=== PATIENT | female | born 1950 | race Two or more races ===

== ENCOUNTER 2018-04-08 01:32 | Emergency (ER) | payer OTHER ==
[~2018-04-08] VITALS: Ht 152.4 cm; Wt 68.5 kg
[~2018-04-08 01:32] MED LIST: GLIP-116; INSUPOW; METF-370; SITA100T7; TELM20TA
[2018-04-08 02:01] VITALS: BP 187/78
[2018-04-08] MEDS ORDERED: cloNIDine HCL 0.1 MG TAB PO ONE (02:15)
== END 2018-04-08 03:49 | disposition left against medical advice (07) ==
LOC: ER 01:46
DX: R51 Headache (principal); Z53.21 Procedure and treatment not carried out due to patient leaving prior to being seen by health care provider
CPT/HCPCS: 70450; 82962; 93005

== ENCOUNTER 2021-04-19 23:29 | Inpatient (IN) | payer OTHER ==
[~2021-04-19] VITALS: Ht 157.5 cm; Wt 65.1 kg
[~2021-04-19 23:29] MED LIST changes: -GLIP-116; +GLIP10TA9 PO; -SITA100T7; +SITA100T7 PO
[2021-04-20] MEDS ORDERED: MORPHINE SULFATE 4 MG/ML SYR/VIAL IV ONE ×2 (00:45→01:15)
[2021-04-20 01:36] LABS: Albumin 3.5 g/dL (3.4-5.0); BUN/Creatinine Ratio 34.7; Calcium 8.4 mg/dL (8.5-10.1); Potassium 4.6 mmol/L (3.5-5.1)
[2021-04-20 01:37] LABS: Basophils # (auto) 0 10 ^3/uL (0-0.2); Basophils % (auto) 0.1 % (0.0-2.0); Eosinophils # (auto) 0 10 ^3/uL (0-0.8); Eosinophils % (auto) 0.1 % (0.0-7.0); Hematocrit 37.9 % (36.0-46.0); Hemoglobin 12.4 g/dL (12.2-16.2); Lymphocytes % (auto) 12.1 % (10.0-50.0); Mean Corpuscular Hemoglobin 29.3 pg (28.0-32.0); Mean Corpuscular Hgb Conc. 32.6 g/dL (32.0-36.0); Mean Corpuscular Volume 89.7 fL (80.0-100.0); Monocytes # (auto) 1.2 10 ^3/uL (0-1.3); Monocytes % (auto) 7.3 % (0.0-12.0); Neutrophils # (auto) 13.4 10 ^3/uL (1.6-8.6); Neutrophils % (auto) 80.4 % (37.0-80.0); Red Blood Cells 4.22 10^6/uL (4.0-5.20); Red Cell Distribution Width 14.7 % (11.8-14.3); White Blood Cell 16.7 10^3/uL (4.4-10.8)
[2021-04-20 01:39] LABS: Bilirubin, Total 0.3 mg/dL (0.2-1.0); Total Protein 6.7 g/dL (6.4-8.2)
[2021-04-20 01:45] LABS: INR 0.99 (0.9-1.15)
[2021-04-20] MEDS: SODIUM CHLORIDE 0.9% 1,000 ML IV SCH ×3 (02:57→07:06)
[2021-04-20] MEDS ORDERED: DEXTROSE (50%) 50ML SYRG IV PRN (03:00)
[2021-04-20] MEDS ORDERED: ONDANSETRON HCL 4 MG/2 ML VIAL IV PRN (03:00)
[2021-04-20] MEDS ORDERED: ACETAMINOPHEN 325 MG TAB PO PRN (03:00)
[2021-04-20] MEDS: MORPHINE SULFATE 4 MG/ML SYR/VIAL IV PRN ×3 (05:19→14:55)
[2021-04-20] MEDS: HYDROcodone-ACET 5/325MG TAB PO PRN ×2 (05:28→22:09)
[2021-04-20] MEDS: InsuLIN REG 1unit/0.01ml Soln (100units/ml) SC SCH ×4 (06:00→23:51)
[2021-04-20] MEDS: ACCU-CHEK COMFORT CURVE STRIP VI SCH ×4 (07:12→23:51)
[2021-04-20 09:09] LABS: Urine Bacteria FEW /hpf (None Seen); Urine Blood 1+ /uL (Negative); Urine WBC 3 /hpf (0 - 5)
[2021-04-20 09:45] VITALS: BP 130/58
[2021-04-20] MEDS: PANTOPRAZOLE 40 MG/10 ML VIAL INJ IV SCH (10:16)
[2021-04-20 13:00] VITALS: BP 130/58
[2021-04-20] MEDS ORDERED: METF-372 PO (14:54)
[2021-04-20] MEDS ORDERED: AMLO-496 PO (14:54)
[2021-04-20] MEDS ORDERED: TRAZ50TA2 PO (14:54)
[2021-04-20] MEDS ORDERED: GLUC1TES36 XX (14:55)
[2021-04-20] MEDS ORDERED: MET50T PO (14:55)
[2021-04-20] MEDS ORDERED: CITA-73 PO (14:55)
[2021-04-20] MEDS ORDERED: INSU1INJ5 SC (14:55)
[2021-04-20] MEDS ORDERED: OMEP20TA PO (14:57)
[2021-04-20] MEDS ORDERED: amLODIPine BESYLATE 5 MG TAB PO ONE (16:45)
[2021-04-20 17:00] VITALS: BP 154/58
[2021-04-20] MEDS: CALCIUM W/VIT D (600MG/400IU) TAB PO SCH (18:00)
[2021-04-20 22:00] VITALS: BP 151/60
[2021-04-21 05:00] VITALS: BP 166/62
[2021-04-21] MEDS: MORPHINE SULFATE 4 MG/ML SYR/VIAL IV PRN (05:37)
[2021-04-21] MEDS: SODIUM CHLORIDE 0.9% 1,000 ML IV SCH (05:52)
[2021-04-21 06:05] LABS: Basophils # (auto) 0 10 ^3/uL (0-0.2); Basophils % (auto) 0.4 % (0.0-2.0); Eosinophils # (auto) 0.2 10 ^3/uL (0-0.8); Eosinophils % (auto) 2.1 % (0.0-7.0); Hematocrit 36.4 % (36.0-46.0); Hemoglobin 12.2 g/dL (12.2-16.2); Lymphocytes # (auto) 2.5 10 ^3/uL (0.4-5.4); Lymphocytes % (auto) 23.4 % (10.0-50.0); Mean Corpuscular Hemoglobin 29.8 pg (28.0-32.0); Mean Corpuscular Hgb Conc. 33.4 g/dL (32.0-36.0); Monocytes # (auto) 1.1 10 ^3/uL (0-1.3); Monocytes % (auto) 10.8 % (0.0-12.0); Neutrophils # (auto) 6.7 10 ^3/uL (1.6-8.6); Neutrophils % (auto) 63.3 % (37.0-80.0); Red Blood Cells 4.09 10^6/uL (4.0-5.20); Red Cell Distribution Width 14.7 % (11.8-14.3); White Blood Cell 10.6 10^3/uL (4.4-10.8)
[2021-04-21] MEDS: InsuLIN REG 1unit/0.01ml Soln (100units/ml) SC SCH ×4 (06:05→23:55)
[2021-04-21] MEDS: ACCU-CHEK COMFORT CURVE STRIP VI SCH ×4 (06:08→23:48)
[2021-04-21 06:31] LABS: Albumin 3.2 g/dL (3.4-5.0); BUN/Creatinine Ratio 19.3; Calcium 8.8 mg/dL (8.5-10.1)
[2021-04-21 06:44] LABS: Bilirubin, Total 0.6 mg/dL (0.2-1.0); Total Protein 6.9 g/dL (6.4-8.2)
[2021-04-21 07:45] VITALS: BP 146/96
[2021-04-21] MEDS ORDERED: ceFAZolin 1GM/50ML 100 ML IV ONE (08:09)
[2021-04-21] MEDS ORDERED: fentaNYL CITRATE 100 MCG/2 ML VL ONE (08:17)
[2021-04-21] MEDS ORDERED: MIDAZOLAM HCL 2MG/2ML 2ml VIAL (1mg/ml) ONE ×2 (08:17)
[2021-04-21] MEDS ORDERED: TETRACAINE 1% INJ 2 ML VIAL IJ ONE (08:17)
[2021-04-21] MEDS ORDERED: DexAMETHasone SOD PHOS 10MG/1ML VIAL INJ ONE (08:50)
[2021-04-21] MEDS ORDERED: PROPOFOL 10 MG/ML 20 ML IV ONE (08:50)
[2021-04-21] MEDS ORDERED: ePHEDrine SULFATE 50 MG/ML AMP IV PRN (09:15)
[2021-04-21] MEDS ORDERED: ONDANSETRON HCL 4 MG/2 ML VIAL IV PRN (09:15)
[2021-04-21] MEDS ORDERED: LABETALOL HCL 5 MG/ML 4ML SYRINGE IV PRN (09:15)
[2021-04-21] MEDS ORDERED: HYDROmorphone HCL 2 MG/ML VL IV PRN (09:15)
[2021-04-21] MEDS ORDERED: MORPHINE SULFATE 4 MG/ML SYR/VIAL IV PRN (09:15)
[2021-04-21] MEDS ORDERED: MIDAZOLAM HCL 2MG/2ML 2ml VIAL (1mg/ml) IV PRN (09:15)
[2021-04-21] MEDS ORDERED: HYDROcodone-ACET 10/325MG TAB PO PRN (10:15)
[2021-04-21 11:15] VITALS: BP 162/61
[2021-04-21] MEDS ORDERED: MORPHINE SULFATE INJECTION 2 MG/ML SYRG IV PRN (11:30)
[2021-04-21] MEDS: CALCIUM W/VIT D (600MG/400IU) TAB PO SCH ×2 (11:30→18:00)
[2021-04-21] MEDS: LACTATED RINGER'S 1,000 ML IV SCH ×2 (11:30→20:15)
[2021-04-21] MEDS: amLODIPine BESYLATE 5 MG TAB PO SCH (12:00)
[2021-04-21] MEDS: CITALOPRAM HYDROBR 20 MG TAB PO SCH (12:00)
[2021-04-21] MEDS: PANTOPRAZOLE 40 MG/10 ML VIAL INJ IV SCH (12:00)
[2021-04-21 13:00] VITALS: BP 143/54
[2021-04-21] MEDS: MORPHINE SULFATE INJECTION 2 MG/ML SYRG IV PRN ×2 (13:18→21:35)
[2021-04-21] MEDS ORDERED: ceFAZolin 2 GM in D5W 5% 100 ML IV SCH (14:00)
[2021-04-21] MEDS: SODIUM CHLOR 0.9% PF (SALINE LOCK) 10ML VIAL/SYR IV SCH ×2 (14:00→21:35)
[2021-04-21] MEDS: ceFAZolin 2 GM in D5W 5% 100 ML IV SCH ×2 (16:30→23:47)
[2021-04-21 16:52] VITALS: BP 143/67
[2021-04-21] MEDS: metFORMIN HYDROCHLORIDE 500 MG TAB PO SCH (17:30)
[2021-04-21] MEDS: INSULIN LANTUS (GLARGINE) 1 /0.01ml (100units/ml) SC SCH (21:35)
[2021-04-21 22:00] VITALS: BP 139/49
[2021-04-22 05:00] VITALS: BP 137/54
[2021-04-22] MEDS: SODIUM CHLOR 0.9% PF (SALINE LOCK) 10ML VIAL/SYR IV SCH ×3 (06:02→21:52)
[2021-04-22] MEDS: ACCU-CHEK COMFORT CURVE STRIP VI SCH ×3 (06:03→17:20)
[2021-04-22] MEDS: LACTATED RINGER'S 1,000 ML IV SCH (06:03)
[2021-04-22] MEDS: InsuLIN REG 1unit/0.01ml Soln (100units/ml) SC SCH ×3 (06:29→17:33)
[2021-04-22] MEDS: MORPHINE SULFATE INJECTION 2 MG/ML SYRG IV PRN ×2 (06:31→10:07)
[2021-04-22 06:42] LABS: Basophils # (auto) 0 10 ^3/uL (0-0.2); Basophils % (auto) 0.2 % (0.0-2.0); Eosinophils # (auto) 0 10 ^3/uL (0-0.8); Eosinophils % (auto) 0.1 % (0.0-7.0); Hematocrit 29.1 % (36.0-46.0); Hemoglobin 9.7 g/dL (12.2-16.2); Lymphocytes # (auto) 1.7 10 ^3/uL (0.4-5.4); Lymphocytes % (auto) 13.6 % (10.0-50.0); Mean Corpuscular Hemoglobin 29.8 pg (28.0-32.0); Mean Corpuscular Hgb Conc. 33.5 g/dL (32.0-36.0); Mean Corpuscular Volume 88.9 fL (80.0-100.0); Monocytes # (auto) 1.2 10 ^3/uL (0-1.3); Monocytes % (auto) 9.8 % (0.0-12.0); Neutrophils # (auto) 9.4 10 ^3/uL (1.6-8.6); Neutrophils % (auto) 76.3 % (37.0-80.0); Red Blood Cells 3.27 10^6/uL (4.0-5.20); Red Cell Distribution Width 14.6 % (11.8-14.3); White Blood Cell 12.3 10^3/uL (4.4-10.8)
[2021-04-22 07:07] LABS: Potassium 4.1 mmol/L (3.5-5.1)
[2021-04-22 07:12] LABS: Calcium 8.9 mg/dL (8.5-10.1)
[2021-04-22] MEDS: CALCIUM W/VIT D (600MG/400IU) TAB PO SCH ×2 (08:00→17:21)
[2021-04-22] MEDS: metFORMIN HYDROCHLORIDE 500 MG TAB PO SCH ×2 (08:00→17:20)
[2021-04-22 09:00] VITALS: BP 144/69
[2021-04-22] MEDS: CITALOPRAM HYDROBR 20 MG TAB PO SCH (10:00)
[2021-04-22] MEDS: ENOXAPARIN SOD 40 MG/0.4 ML SYRINGE SC SCH (10:00)
[2021-04-22] MEDS: PANTOPRAZOLE 40 MG/10 ML VIAL INJ IV SCH (10:00)
[2021-04-22] MEDS: amLODIPine BESYLATE 5 MG TAB PO SCH (10:00)
[2021-04-22 13:00] VITALS: BP 152/63
[2021-04-22 17:00] VITALS: BP 130/60
[2021-04-22] MEDS: INSULIN LANTUS (GLARGINE) 1 /0.01ml (100units/ml) SC SCH (21:53)
[2021-04-22 22:00] VITALS: BP 139/54
[2021-04-23] MEDS: MORPHINE SULFATE INJECTION 2 MG/ML SYRG IV PRN (02:52)
[2021-04-23 04:45] VITALS: BP 128/59
[2021-04-23] MEDS: SODIUM CHLOR 0.9% PF (SALINE LOCK) 10ML VIAL/SYR IV SCH ×2 (05:11→12:37)
[2021-04-23] MEDS: ACCU-CHEK COMFORT CURVE STRIP VI SCH ×4 (06:20→18:00)
[2021-04-23] MEDS: InsuLIN REG 1unit/0.01ml Soln (100units/ml) SC SCH ×4 (06:28→18:00)
[2021-04-23] MEDS: metFORMIN HYDROCHLORIDE 500 MG TAB PO SCH ×2 (08:00→18:00)
[2021-04-23] MEDS: CALCIUM W/VIT D (600MG/400IU) TAB PO SCH ×2 (08:00→18:00)
[2021-04-23 09:00] VITALS: BP 123/75
[2021-04-23] MEDS: amLODIPine BESYLATE 5 MG TAB PO SCH (09:45)
[2021-04-23] MEDS: CITALOPRAM HYDROBR 20 MG TAB PO SCH (09:45)
[2021-04-23] MEDS: ENOXAPARIN SOD 40 MG/0.4 ML SYRINGE SC SCH (09:45)
[2021-04-23 13:00] VITALS: BP 130/65
[2021-04-23 17:00] VITALS: BP 126/66
[2021-04-23] MEDS: glipiZIDE 5 MG TAB PO SCH (18:00)
[2021-04-23] MEDS: HYDROcodone-ACET 5/325MG TAB PO PRN (20:20)
[2021-04-23 22:00] VITALS: BP 122/56
[2021-04-23] MEDS: HYDROcodone-ACET 10/325MG TAB PO PRN (22:24)
[2021-04-24] MEDS: ACCU-CHEK COMFORT CURVE STRIP VI SCH ×4 (00:13→17:58)
[2021-04-24] MEDS: InsuLIN REG 1unit/0.01ml Soln (100units/ml) SC SCH ×4 (00:16→17:58)
[2021-04-24] MEDS: SODIUM CHLOR 0.9% PF (SALINE LOCK) 10ML VIAL/SYR IV SCH ×4 (00:21→22:00)
[2021-04-24 05:00] VITALS: BP 128/64
[2021-04-24] MEDS: glipiZIDE 5 MG TAB PO SCH ×2 (06:49→17:57)
[2021-04-24 07:17] LABS: Basophils # (auto) 0 10 ^3/uL (0-0.2); Basophils % (auto) 0.4 % (0.0-2.0); Eosinophils # (auto) 0.3 10 ^3/uL (0-0.8); Eosinophils % (auto) 3.4 % (0.0-7.0); Hematocrit 27.2 % (36.0-46.0); Hemoglobin 9.4 g/dL (12.2-16.2); Lymphocytes # (auto) 2.3 10 ^3/uL (0.4-5.4); Lymphocytes % (auto) 30.2 % (10.0-50.0); Mean Corpuscular Hemoglobin 30.3 pg (28.0-32.0); Mean Corpuscular Hgb Conc. 34.4 g/dL (32.0-36.0); Mean Corpuscular Volume 88.1 fL (80.0-100.0); Monocytes # (auto) 0.9 10 ^3/uL (0-1.3); Monocytes % (auto) 11.5 % (0.0-12.0); Neutrophils # (auto) 4.2 10 ^3/uL (1.6-8.6); Neutrophils % (auto) 54.5 % (37.0-80.0); Nucleated Red Blood Cells % 0.1 %; Red Blood Cells 3.09 10^6/uL (4.0-5.20); Red Cell Distribution Width 14.1 % (11.8-14.3); White Blood Cell 7.8 10^3/uL (4.4-10.8)
[2021-04-24] MEDS: CALCIUM W/VIT D (600MG/400IU) TAB PO SCH ×2 (08:00→17:58)
[2021-04-24] MEDS: metFORMIN HYDROCHLORIDE 500 MG TAB PO SCH ×2 (08:00→17:57)
[2021-04-24 09:00] VITALS: BP 117/60
[2021-04-24] MEDS: CITALOPRAM HYDROBR 20 MG TAB PO SCH (09:56)
[2021-04-24] MEDS: amLODIPine BESYLATE 5 MG TAB PO SCH (09:57)
[2021-04-24] MEDS: ENOXAPARIN SOD 40 MG/0.4 ML SYRINGE SC SCH (10:00)
[2021-04-24 13:00] VITALS: BP 139/56
[2021-04-24 16:46] VITALS: BP 99/57
[2021-04-24] MEDS: HYDROcodone-ACET 10/325MG TAB PO PRN (17:59)
[2021-04-24] MEDS: HYDROcodone-ACET 5/325MG TAB PO PRN (21:51)
[2021-04-24 22:00] VITALS: BP 128/55
[2021-04-25] MEDS: ACCU-CHEK COMFORT CURVE STRIP VI SCH ×5 (00:23→23:18)
[2021-04-25] MEDS: InsuLIN REG 1unit/0.01ml Soln (100units/ml) SC SCH ×4 (00:24→17:57)
[2021-04-25] MEDS: HYDROcodone-ACET 10/325MG TAB PO PRN ×3 (00:27→23:28)
[2021-04-25 05:00] VITALS: BP 142/67
[2021-04-25] MEDS: SODIUM CHLOR 0.9% PF (SALINE LOCK) 10ML VIAL/SYR IV SCH ×3 (06:31→22:00)
[2021-04-25] MEDS: glipiZIDE 5 MG TAB PO SCH ×2 (06:32→17:55)
[2021-04-25] MEDS: CALCIUM W/VIT D (600MG/400IU) TAB PO SCH ×2 (08:00→17:56)
[2021-04-25] MEDS: metFORMIN HYDROCHLORIDE 500 MG TAB PO SCH ×2 (08:00→17:55)
[2021-04-25 09:00] VITALS: BP 136/61
[2021-04-25] MEDS: HYDROcodone-ACET 5/325MG TAB PO PRN (09:35)
[2021-04-25] MEDS: ENOXAPARIN SOD 40 MG/0.4 ML SYRINGE SC SCH (10:00)
[2021-04-25] MEDS: amLODIPine BESYLATE 5 MG TAB PO SCH (10:00)
[2021-04-25] MEDS: CITALOPRAM HYDROBR 20 MG TAB PO SCH (10:00)
[2021-04-25 13:00] VITALS: BP 128/54
[2021-04-25 17:00] VITALS: BP 124/52
[2021-04-25 21:40] VITALS: BP 115/50
[2021-04-26] MEDS: InsuLIN REG 1unit/0.01ml Soln (100units/ml) SC SCH ×5 (00:01→23:25)
[2021-04-26 05:16] VITALS: BP 133/66
[2021-04-26] MEDS: SODIUM CHLOR 0.9% PF (SALINE LOCK) 10ML VIAL/SYR IV SCH ×3 (06:00→22:00)
[2021-04-26 06:35] LABS: Hematocrit 27.4 % (36.0-46.0)
[2021-04-26] MEDS: ACCU-CHEK COMFORT CURVE STRIP VI SCH ×4 (06:37→23:22)
[2021-04-26 06:49] LABS: Anion Gap 6 (5-15); Blood Urea Nitrogen 10 mg/dL (7-18); Calcium 8.4 mg/dL (8.5-10.1); Carbon Dioxide 26 mmol/L (21-32); Chloride 102 mmol/L (98-107); GFR African American 202 mL/min; GFR Non-African American 167 mL/min; Glucose 125 mg/dL (74-106); Potassium 3.6 mmol/L (3.5-5.1); Sodium 134 mmol/L (136-145)
[2021-04-26] MEDS: glipiZIDE 5 MG TAB PO SCH (07:17)
[2021-04-26 09:00] VITALS: BP 135/59
[2021-04-26] MEDS: CALCIUM W/VIT D (600MG/400IU) TAB PO SCH ×2 (09:10→17:37)
[2021-04-26] MEDS: metFORMIN HYDROCHLORIDE 500 MG TAB PO SCH ×2 (09:10→17:37)
[2021-04-26] MEDS: amLODIPine BESYLATE 5 MG TAB PO SCH (09:11)
[2021-04-26] MEDS: CITALOPRAM HYDROBR 20 MG TAB PO SCH (09:11)
[2021-04-26] MEDS: ENOXAPARIN SOD 40 MG/0.4 ML SYRINGE SC SCH (09:12)
[2021-04-26] MEDS: HYDROcodone-ACET 5/325MG TAB PO PRN (09:12)
[2021-04-26 13:00] VITALS: BP_SYST 124; BP_SYST 137; BP_DIAS 51; BP_DIAS 57
[2021-04-26] MEDS: HYDROcodone-ACET 10/325MG TAB PO PRN ×2 (15:44→22:52)
[2021-04-26 17:00] VITALS: BP 124/57
[2021-04-26 22:00] VITALS: BP 121/59
[2021-04-27 05:00] VITALS: BP 131/61
[2021-04-27] MEDS: SODIUM CHLOR 0.9% PF (SALINE LOCK) 10ML VIAL/SYR IV SCH ×3 (05:01→22:11)
[2021-04-27] MEDS: ACCU-CHEK COMFORT CURVE STRIP VI SCH ×3 (06:00→18:00)
[2021-04-27] MEDS: InsuLIN REG 1unit/0.01ml Soln (100units/ml) SC SCH ×4 (06:21→23:54)
[2021-04-27 09:07] VITALS: BP 134/47
[2021-04-27] MEDS: CALCIUM W/VIT D (600MG/400IU) TAB PO SCH ×2 (09:10→17:39)
[2021-04-27] MEDS: CITALOPRAM HYDROBR 20 MG TAB PO SCH (09:10)
[2021-04-27] MEDS: metFORMIN HYDROCHLORIDE 500 MG TAB PO SCH ×2 (09:10→17:39)
[2021-04-27] MEDS: HYDROcodone-ACET 10/325MG TAB PO PRN (09:10)
[2021-04-27] MEDS: ENOXAPARIN SOD 40 MG/0.4 ML SYRINGE SC SCH (09:11)
[2021-04-27] MEDS: amLODIPine BESYLATE 5 MG TAB PO SCH (09:11)
[2021-04-27] MEDS ORDERED: LACTULOSE 20Gm/30ML SOLN PO PRN (11:15)
[2021-04-27 13:01] VITALS: BP 130/52
[2021-04-27 16:42] VITALS: BP 122/50
[2021-04-27 22:00] VITALS: BP 127/58
[2021-04-27] MEDS: HYDROcodone-ACET 5/325MG TAB PO PRN (22:10)
[2021-04-28] MEDS: HYDROcodone-ACET 10/325MG TAB PO PRN ×2 (03:44→21:16)
[2021-04-28 05:00] VITALS: BP 138/53
[2021-04-28] MEDS: InsuLIN REG 1unit/0.01ml Soln (100units/ml) SC SCH ×3 (06:18→18:05)
[2021-04-28] MEDS: ACCU-CHEK COMFORT CURVE STRIP VI SCH ×4 (06:19→18:05)
[2021-04-28] MEDS: SODIUM CHLOR 0.9% PF (SALINE LOCK) 10ML VIAL/SYR IV SCH ×2 (06:22→14:25)
[2021-04-28 07:24] LABS: Hematocrit 27.6 % (36.0-46.0); Hemoglobin 9.4 g/dL (12.2-16.2)
[2021-04-28 09:05] VITALS: BP 141/59
[2021-04-28] MEDS: metFORMIN HYDROCHLORIDE 500 MG TAB PO SCH ×2 (09:52→18:04)
[2021-04-28] MEDS: CITALOPRAM HYDROBR 20 MG TAB PO SCH (09:53)
[2021-04-28] MEDS: ENOXAPARIN SOD 40 MG/0.4 ML SYRINGE SC SCH (09:53)
[2021-04-28] MEDS: amLODIPine BESYLATE 5 MG TAB PO SCH (09:53)
[2021-04-28] MEDS: CALCIUM W/VIT D (600MG/400IU) TAB PO SCH ×2 (09:53→18:05)
[2021-04-28] MEDS: KETOROLAC TROMETH 30 MG/ML 1ML VIAL IV PRN (10:53)
[2021-04-28 13:00] VITALS: BP 108/67
[2021-04-28 17:10] VITALS: BP 135/54
[2021-04-28 22:00] VITALS: BP 121/55
[2021-04-29] MEDS: InsuLIN REG 1unit/0.01ml Soln (100units/ml) SC SCH ×2 (00:15→06:27)
[2021-04-29] MEDS: ACCU-CHEK COMFORT CURVE STRIP VI SCH ×2 (00:16→06:23)
[2021-04-29] MEDS: SODIUM CHLOR 0.9% PF (SALINE LOCK) 10ML VIAL/SYR IV SCH ×2 (00:19→06:28)
[2021-04-29] MEDS: CALCIUM W/VIT D (600MG/400IU) TAB PO SCH (08:00)
[2021-04-29] MEDS: metFORMIN HYDROCHLORIDE 500 MG TAB PO SCH (08:00)
[2021-04-29 09:00] VITALS: BP 123/52
[2021-04-29] MEDS: KETOROLAC TROMETH 30 MG/ML 1ML VIAL IV PRN (09:10)
[2021-04-29] MEDS: CITALOPRAM HYDROBR 20 MG TAB PO SCH (09:43)
[2021-04-29] MEDS: ENOXAPARIN SOD 40 MG/0.4 ML SYRINGE SC SCH (09:43)
[2021-04-29] MEDS: amLODIPine BESYLATE 5 MG TAB PO SCH (10:00)
[2021-04-29 12:29] VITALS: BP 117/51
[2021-04-29] MEDS ORDERED: TRAM50TA2 PO (13:58)
[2021-04-29] MEDS ORDERED: HYDR-4902 PO ×2 (13:58→14:01)
[2021-04-29] MEDS ORDERED: glipiZIDE 5 MG TAB PO ONE (14:00)
[2021-04-29] MEDS ORDERED: IBUP400T22 PO (14:01)
[2021-04-29] MEDS ORDERED: RIVA10TA PO (14:03)
[2021-04-29] MEDS: HYDROcodone-ACET 10/325MG TAB PO PRN (15:25)
[2021-04-29] MEDS ORDERED: glipiZIDE 5 MG TAB PO SCH (20:00)
== END 2021-04-29 17:30 | disposition home or self-care (01) | DRG 482 ==
LOC: EDUNIT# 23:29 → ER 23:29 → EDBD 23:29 → OVERFLOW 23:30 → WEST WING 04-20 10:09 → TELE-WESTW 04-21 17:21 → WEST WING 04-26 16:00
PROVIDERS: ADMIT Nurse Practitioner; ATTEND Internal Medicine
PROC: 0QS706Z Reposition Left Upper Femur with Intramedullary Internal Fixation Device, Open Approach (ICD-10-PCS; principal; 2021-04-21 08:26)
DX: S72.142A Displaced intertrochanteric fracture of left femur, initial encounter for closed fracture (principal); I10 Essential (primary) hypertension; E11.9 Type 2 diabetes mellitus without complications; S92.001A Unspecified fracture of right calcaneus, initial encounter for closed fracture; F41.9 Anxiety disorder, unspecified; W01.0XXA Fall on same level from slipping, tripping and stumbling without subsequent striking against object, initial encounter; M81.0 Age-related osteoporosis without current pathological fracture; Z20.822 Contact with and (suspected) exposure to COVID-19; Z86.73 Personal history of transient ischemic attack (TIA), and cerebral infarction without residual deficits; Z87.442 Personal history of urinary calculi; Z90.710 Acquired absence of both cervix and uterus; Y93.89 Activity, other specified; Y92.89 Other specified places as the place of occurrence of the external cause; Y99.8 Other external cause status
CPT/HCPCS: 36415; 71045; 73502; 73590; 73610; 76000; 80048; 80053; 81001; 82962; 83036; 84132; 85014; 85018; 85025; 85610; 87081; 87426; 93005; 96361; 96374; 97110; 97116; 97163; 97530; C1713; C1769; C9113; G0378; J0690; J1100; J1815; J1885; J2250; J2704; J7060

== ENCOUNTER 2021-09-25 04:10 | Emergency (ER) | payer OTHER ==
[~2021-09-25 04:10] MED LIST changes: +AMLO-496 PO; +CITA-73 PO; +GLUC1TES36 XX; +HYDR-4902 PO; +IBUP400T22 PO; -INSUPOW; -METF-370; +METF-372 PO; +OMEP20TA PO; +RIVA10TA PO; -SITA100T7 PO; -TELM20TA; +TRAZ50TA2 PO
[2021-09-25 05:43] LABS: Basophils # (auto) 0 10 ^3/uL (0-0.2); Basophils % (auto) 0.2 % (0.0-2.0); Eosinophils # (auto) 0 10 ^3/uL (0-0.8); Eosinophils % (auto) 0.4 % (0.0-7.0); Hematocrit 37.5 % (36.0-46.0); Hemoglobin 12.4 g/dL (12.2-16.2); Lymphocytes # (auto) 1.4 10 ^3/uL (0.4-5.4); Lymphocytes % (auto) 14.5 % (10.0-50.0); Mean Corpuscular Hemoglobin 28.7 pg (28.0-32.0); Mean Corpuscular Hgb Conc. 32.9 g/dL (32.0-36.0); Mean Corpuscular Volume 87.1 fL (80.0-100.0); Monocytes # (auto) 0.4 10 ^3/uL (0-1.3); Monocytes % (auto) 4.6 % (0.0-12.0); Neutrophils # (auto) 7.7 10 ^3/uL (1.6-8.6); Neutrophils % (auto) 80.3 % (37.0-80.0); Red Blood Cells 4.31 10^6/uL (4.0-5.20); Red Cell Distribution Width 14.5 % (11.8-14.3); White Blood Cell 9.6 10^3/uL (4.4-10.8)
[2021-09-25 06:01] LABS: Calcium 9.5 mg/dL (8.5-10.1); Potassium 4.1 mmol/L (3.5-5.1)
[2021-09-25 06:05] LABS: Albumin 4.3 g/dL (3.4-5.0); BUN/Creatinine Ratio 28.4
[2021-09-25 06:08] LABS: Bilirubin, Total 0.6 mg/dL (0.2-1.0); Total Protein 8.2 g/dL (6.4-8.2)
[2021-09-25] MEDS ORDERED: SODIUM CHLORIDE 0.9% 1,000 ML IV ONE (07:00)
[2021-09-25] MEDS ORDERED: ONDANSETRON HCL 4 MG/2 ML VIAL IV ONE (07:00)
[2021-09-25] MEDS ORDERED: MECL25CH38 PO (10:20)
[2021-09-25 10:46] VITALS: BP 153/68
== END 2021-09-25 10:50 | disposition home or self-care (01) ==
LOC: ER 04:10
DX: R42 Dizziness and giddiness (principal); E11.9 Type 2 diabetes mellitus without complications; I10 Essential (primary) hypertension; Z90.710 Acquired absence of both cervix and uterus; Z87.442 Personal history of urinary calculi; Z86.73 Personal history of transient ischemic attack (TIA), and cerebral infarction without residual deficits
CPT/HCPCS: 36415; 74176; 80053; 85025; 93005; 96361; 96374; 99284; J2405; J7030

== ENCOUNTER 2023-07-13 17:11 | Inpatient (IN) | payer OTHER ==
[~2023-07-13] VITALS: Ht 160 cm; Wt 70.2 kg
[~2023-07-13 17:11] MED LIST changes: -AMLO-496 PO; +AMLO1TAB23 PO; +IBUP-1453 PO; -IBUP400T22 PO; +MECL25CH38 PO; +TRAZ-227 PO; -TRAZ50TA2 PO
[2023-07-13 18:58] LABS: Basophils # (auto) 0 10 ^3/uL (0-0.2); Basophils % (auto) 0.3 % (0.0-2.0); Eosinophils # (auto) 0.1 10 ^3/uL (0-0.8); Eosinophils % (auto) 0.5 % (0.0-7.0); Hematocrit 41.5 % (36.0-46.0); Hemoglobin 13.5 g/dL (12.2-16.2); Lymphocytes % (auto) 12.7 % (10.0-50.0); Mean Corpuscular Hemoglobin 28.7 pg (28.0-32.0); Mean Corpuscular Hgb Conc. 32.4 g/dL (32.0-36.0); Mean Corpuscular Volume 88.5 fL (80.0-100.0); Monocytes % (auto) 6.3 % (0.0-12.0); Neutrophils # (auto) 12.7 10 ^3/uL (1.6-8.6); Neutrophils % (auto) 80.2 % (37.0-80.0); Nucleated Red Blood Cells % 0.1 %; Red Cell Distribution Width 15.4 % (11.8-14.3); White Blood Cell 15.9 10^3/uL (4.4-10.8)
[2023-07-13 19:01] LABS: INR 0.98 (0.9-1.15); Prothrombin Time 10.4 sec (9.3-11.8)
[2023-07-13 19:02] LABS: Alanine Aminotransferase 10 U/L (7-40); Alkaline Phosphatase 76 U/L (46-116)
[2023-07-13 19:03] LABS: Albumin 4.8 g/dL (3.2-4.8); Anion Gap 14 (5-15); Aspartate Aminotransferase 22 U/L (13-40); BUN/Creatinine Ratio 18.3 (10.0-20.0); Bilirubin, Total 0.8 mg/dL (0.2-1.0); Blood Urea Nitrogen 13 mg/dL (9-23); Calcium 10.2 mg/dL (8.5-10.1); Carbon Dioxide 21 mmol/L (20-30); Chloride 103 mmol/L (98-107); Glucose 106 mg/dL (74-106); Potassium 4.4 mmol/L (3.5-5.1); Sodium 138 mmol/L (136-145); Total Protein 7.6 g/dL (5.7-8.2)
[2023-07-13 19:30] VITALS: PULSE 66; RESP 21; O2SAT 94
[2023-07-13 20:37] LABS: Urine Bacteria None Seen /hpf (None Seen)
[2023-07-13] MEDS: ONDANSETRON HCL 4 MG/2 ML VIAL ONE (20:42)
[2023-07-13] MEDS: ONDANSETRON HCL 4 MG/2 ML VIAL IV ONE (20:43)
[2023-07-13] MEDS: MORPHINE SULFATE 4 MG/ML SYR/VIAL IV ONE (20:44)
[2023-07-13 20:47] LABS: Urine Blood TRACE /uL (Negative); Urine Clarity Clear (Clear); Urine Color Yellow (Yellow); Urine Mucus FEW (None Seen); Urine Protein, UAD TRACE (Negative); Urine Specific Gravity 1.026 (1.001-1.035); Urine Urobilinogen Normal (Negative); Urine WBC 1 /hpf (0 - 5); Urine pH 5.5 (5.0-9.0)
[2023-07-13] MEDS ORDERED: DOCUSATE SOD 100 MG CAP PO PRN (21:45)
[2023-07-13] MEDS ORDERED: hydrALAZINE HCL 20 MG/ML VL IV PRN (21:45)
[2023-07-13] MEDS ORDERED: ACETAMINOPHEN 325 MG TAB PO PRN (21:45)
[2023-07-13] MEDS ORDERED: DEXTROSE (50%) 50ML SYRG IV PRN (21:45)
[2023-07-13] MEDS ORDERED: MORPHINE SULFATE INJ 2 MG/ml SYRG IV PRN (22:45)
[2023-07-13] MEDS ORDERED: NITROGLYCERIN 0.4 MG SL TAB SL PRN (22:45)
[2023-07-14] VITALS (9 sets, daily range): BP systolic 104–139; BP diastolic 31–78; PULSE 55–108; RESP 18–20; TEMP 97.9–99.7; O2SAT 97–99
[2023-07-14] MEDS: ACCU-CHEK COMFORT CURVE STRIP VI SCH (00:11)
[2023-07-14] MEDS: cefTRIAXone 1GM/50ML D5W 50 ML IV ONE (00:17)
[2023-07-14] MEDS: SODIUM CHLORIDE 0.9% 1,000 ML IV SCH (00:17)
[2023-07-14] MEDS: InsuLIN REG 1unit/0.01ml Soln (100units/ml) SC SCH (00:18)
[2023-07-14] MEDS: HYDROcodone-ACET 5/325MG TAB PO PRN (04:41)
[2023-07-14 06:13] LABS: Basophils # (auto) 0 10 ^3/uL (0-0.2); Basophils % (auto) 0.3 % (0.0-2.0); Eosinophils # (auto) 0.1 10 ^3/uL (0-0.8); Eosinophils % (auto) 1.6 % (0.0-7.0); Hematocrit 36.3 % (36.0-46.0); Lymphocytes # (auto) 1.8 10 ^3/uL (0.4-5.4); Lymphocytes % (auto) 22.9 % (10.0-50.0); Mean Corpuscular Hemoglobin 29.1 pg (28.0-32.0); Mean Corpuscular Hgb Conc. 33.2 g/dL (32.0-36.0); Mean Corpuscular Volume 87.6 fL (80.0-100.0); Monocytes # (auto) 0.8 10 ^3/uL (0-1.3); Neutrophils # (auto) 5.3 10 ^3/uL (1.6-8.6); Neutrophils % (auto) 65.2 % (37.0-80.0); Red Blood Cells 4.14 10^6/uL (4.0-5.20); Red Cell Distribution Width 14.9 % (11.8-14.3); White Blood Cell 8.1 10^3/uL (4.4-10.8)
[2023-07-14 06:38] LABS: Alkaline Phosphatase 65 U/L (46-116); Anion Gap 9 (5-15); Aspartate Aminotransferase 14 U/L (13-40); BUN/Creatinine Ratio 18.3 (10.0-20.0); Blood Urea Nitrogen 11 mg/dL (9-23); Calcium 9.1 mg/dL (8.5-10.1); Carbon Dioxide 24 mmol/L (20-30); Chloride 105 mmol/L (98-107); Glucose 71 mg/dL (74-106); Potassium 3.8 mmol/L (3.5-5.1); Sodium 138 mmol/L (136-145)
[2023-07-14 06:39] LABS: Alanine Aminotransferase < 9 U/L (7-40); Total Protein 6.4 g/dL (5.7-8.2)
[2023-07-14] MEDS: cefTRIAXone 1GM/50ML D5W 50 ML IV SCH (09:14)
[2023-07-14] MEDS: ENOXAPARIN SOD 40 MG/0.4 ML SYRINGE SC SCH (10:26)
[2023-07-14] MEDS: MORPHINE SULFATE INJ 2 MG/ml SYRG IV PRN (19:35)
[2023-07-14] MEDS: CYCLOBENZAPRINE HCL 10 MG TAB PO ONE (21:16)
[2023-07-15] VITALS (7 sets, daily range): BP systolic 137–157; BP diastolic 50–68; PULSE 68–86; RESP 18–22; TEMP 98–99.2; O2SAT 95–98
[2023-07-15] MEDS ORDERED: MIDAZOLAM HCL 2MG/2ML 2ml VIAL (1mg/ml) ONE (09:22)
[2023-07-15] MEDS ORDERED: fentaNYL CITRATE 100 MCG/2 ML VL ONE (09:22)
[2023-07-15] MEDS ORDERED: PROPOFOL 10 MG/ML 20 ML IV ONE (10:19)
[2023-07-15] MEDS ORDERED: ePHEDrine SULFATE 50 MG/ML AMP ONE (10:27)
[2023-07-15] MEDS: LACTATED RINGER'S 1,000 ML IV SCH (12:15)
[2023-07-15] MEDS: HYDROcodone-ACET 10/325MG TAB PO PRN (12:23)
[2023-07-15] MEDS: SODIUM CHLOR 0.9% PF (SALINE LOCK) 10ML VIAL/SYR IV SCH (12:23)
[2023-07-15] MEDS: ceFAZolin 2 GM/D5W50ml 50 ML IV SCH (12:23)
[2023-07-16] VITALS (8 sets, daily range): BP systolic 133–141; BP diastolic 50–63; PULSE 71–78; RESP 16–20; TEMP 97.4–99.1; O2SAT 96–98
[2023-07-16 05:21] LABS: Basophils # (auto) 0 10 ^3/uL (0-0.2); Basophils % (auto) 0.3 % (0.0-2.0); Eosinophils # (auto) 0.2 10 ^3/uL (0-0.8); Hematocrit 29.9 % (36.0-46.0); Hemoglobin 10.1 g/dL (12.2-16.2); Lymphocytes # (auto) 1.1 10 ^3/uL (0.4-5.4); Lymphocytes % (auto) 13.6 % (10.0-50.0); Mean Corpuscular Hemoglobin 29.1 pg (28.0-32.0); Mean Corpuscular Hgb Conc. 33.6 g/dL (32.0-36.0); Mean Corpuscular Volume 86.4 fL (80.0-100.0); Monocytes # (auto) 0.8 10 ^3/uL (0-1.3); Monocytes % (auto) 10.8 % (0.0-12.0); Neutrophils # (auto) 5.7 10 ^3/uL (1.6-8.6); Neutrophils % (auto) 73.3 % (37.0-80.0); Red Blood Cells 3.46 10^6/uL (4.0-5.20); Red Cell Distribution Width 14.6 % (11.8-14.3); White Blood Cell 7.8 10^3/uL (4.4-10.8)
[2023-07-16 05:26] LABS: Chloride 101 mmol/L (98-107); Potassium 3.7 mmol/L (3.5-5.1); Sodium 135 mmol/L (136-145)
[2023-07-16 05:27] LABS: Anion Gap 7 (5-15); Carbon Dioxide 27 mmol/L (20-30)
[2023-07-16 05:28] LABS: Calcium 8.9 mg/dL (8.5-10.1)
[2023-07-16 05:33] LABS: BUN/Creatinine Ratio 9.6 (10.0-20.0); Blood Urea Nitrogen < 5 mg/dL (9-23); Glucose 172 mg/dL (74-106)
[2023-07-16] MEDS: ENOXAPARIN SOD 40 MG/0.4 ML SYRINGE SC SCH (08:36)
[2023-07-16 09:47] LABS: Hepatitis B Surface Antigen Negative (Negative)
[2023-07-16 10:09] LABS: Hepatitis C Antibody Negative (Negative)
[2023-07-16] MEDS: ONDANSETRON HCL 4 MG/2 ML VIAL IV ONE (10:44)
[2023-07-16] MEDS: ROPIVACAINE 0.5% (5MG/ML) 20ML AMPULE IJ ONE (10:44)
[2023-07-17] VITALS (7 sets, daily range): BP systolic 116–149; BP diastolic 59–77; PULSE 72–98; RESP 14–16; TEMP 97–98.4; O2SAT 94–100
[2023-07-17] MEDS ORDERED: HYDR-4798 PO (12:02)
[2023-07-17] MEDS: ONDANSETRON HCL 4 MG/2 ML VIAL IV PRN (12:08)
== END 2023-07-17 15:15 | disposition home or self-care (01) | DRG 481 ==
LOC: EDBD 17:11 → ER 17:11 → OVERFLOW 22:39 → WEST WING 22:39
PROVIDERS: ADMIT Nurse Practitioner Family; ATTEND Internal Medicine Pulmonary Disease
PROC: 0QS636Z Reposition Right Upper Femur with Intramedullary Internal Fixation Device, Percutaneous Approach (ICD-10-PCS; principal; 2023-07-15 10:02)
DX: S72.144A Nondisplaced intertrochanteric fracture of right femur, initial encounter for closed fracture (principal); R71.0 Precipitous drop in hematocrit; D72.829 Elevated white blood cell count, unspecified; E11.9 Type 2 diabetes mellitus without complications; W18.39XA Other fall on same level, initial encounter; I10 Essential (primary) hypertension; Z86.73 Personal history of transient ischemic attack (TIA), and cerebral infarction without residual deficits; Z87.442 Personal history of urinary calculi; Z90.710 Acquired absence of both cervix and uterus; Z90.49 Acquired absence of other specified parts of digestive tract; Y93.89 Activity, other specified; Y92.89 Other specified places as the place of occurrence of the external cause; Y99.8 Other external cause status; Z82.49 Family history of ischemic heart disease and other diseases of the circulatory system; Z83.3 Family history of diabetes mellitus; Z82.3 Family history of stroke
CPT/HCPCS: 96374; 96375; 99285; G0042; 36415; 71045; 72192; 73502; 76000; 80048; 80053; 81001; 82962; 85025; 85610; 86803; 86850; 86900; 86901; 87340; 93005; 97110; 97116; 97163; 97530; A6198; G0378; J1815; J2250; J2405; J2704

== ENCOUNTER 2024-09-07 14:39 | Emergency (ER) | payer OTHER ==
[~2024-09-07] VITALS: Ht 160 cm; Wt 67.0 kg
[~2024-09-07 14:39] MED LIST changes: +HYDR-4798 PO
--- NOTE | 2024-09-07 15:34 | DVH ---
CLINICAL INDICATION: fall TECHNIQUE: 2 radiographic views of the left humerus were obtained. Comparison: None FINDINGS/IMPRESSION: Impacted fracture neck of the left humerus as well as mildly displaced fracture through the greater t uberosity of the left humerus. The visualized joint space is well maintained. The alignment is anatomical. There is no radiopaque foreign body.
--- NOTE | 2024-09-07 15:36 | DVH ---
CLINICAL INDICATION: fall TECHNIQUE: 2 radiographic views of the left shoulder were obtained. Comparison: None FINDINGS/IMPRESSION: Impacted fracture through the neck of the left humerus and mildly displaced fracture through the grea ter tuberosity of the proximal left humerus. Clavicle appears intact acromioclavicular joint appears normal. The visualized joint space is well maintained. The alignment is anatomical. There is no radiopaque foreign body.
[2024-09-07] MEDS: SODIUM CHLORIDE 0.9% 1,000 ML IV ONE (15:46)
[2024-09-07] MEDS: HYDROcodone-ACET 5/325MG TAB PO ONE (15:46)
[2024-09-07] MEDS: MORPHINE SULFATE 4 MG/ML SYR/VIAL IV ONE (15:54)
[2024-09-07] MEDS: ONDANSETRON HCL 4 MG/2 ML VIAL IV ONE (15:54)
--- NOTE | 2024-09-07 16:32 | ED.PDOC ---
Musculoskeletal HPI Comments 74y F who presents to the ED for chief complaint of upper extremity pain. Pt presents with spouse and pt states she had mechanical fall while using walker and had trip and fall onto L shoulder to break fall. PT did not hit head or any associated loss of consciousness but states she has since not been able to move her L upper extremity. Pt in the ED, with noted deformity to L shoulder and pain with any noted movement. Pt in noted distress in the ED. Pt otherwise denies any other symptoms at this time. Chief Complaint: Upper Extremity Time Seen by MD: 14:47 Primary Care Provider: UNKNOWN Reviewed Notes: Medications, Allergies Allergies: Coded Allergies: NO KNOWN ALLERGIES (Unverified , 09/29/11) Home Meds Active Scripts Hydrocodone-Acetaminophen (Hydrocodone Bitartrate/AC 10-325 mg) 1 Tab Tab, 1 TAB PO Q4HP PRN for 5 Days, #25 TAB Prov:BRINA SALGADO MD 07/17/23 Meclizine HCl (Meclizine) 25 Mg Chw, 25 MG PO DAILY for 10 Days, #10 CHW Prov:RIP FONTANA MD 09/25/21 Rivaroxaban (XARELTO) 10 Mg Tab, 1 TAB PO DAILY, #30 TAB 0 Refills For DVT prophylaxis Prov:GLENDY DONOVAN MD 04/29/21 Ibuprofen (Ibuprofen) 400 Mg Tab, 1 TAB PO Q6HPRN, #30 TAB for mild to moderate pain, take with food Prov:GLENDY DONOVAN MD 04/29/21 Hydrocodone-Acetaminophen (Hydrocodone Bitartrate/AC 5-325 mg) 1 Tab Tab, 1 TAB PO Q6HP PRN for 10 Days, #40 TAB For moderate to severe pain Prov:GLENDY DONOVAN MD 04/29/21 Reported Medications Omeprazole (Gnp Omeprazole) 20 Mg Tab, 20 MG PO, TAB 04/20/21 Glucose Blood (True Metrix Blood Glucose) 1 Yohana Yohana, XX 04/20/21 Citalopram Hydrobromide (Citalopram Hydrobromide) 40 Mg Tab, 1 TAB PO DAILYPRN 04/20/21 Amlodipine Besylate (Amlodipine Besylate) 10 Mg Tab, 1 TAB PO DAILYPRN 04/20/21 Metformin Hydrochloride (Metformin Hcl) 1,000 Mg Tab, 1 TAB PO BID 04/20/21 Trazodone Hcl (Trazodone Hcl) 50 Mg Tab, 1 TAB PO 04/20/21 [[id number] Mg] (Glipizide) 10 MG TAB No Conflict Check, 10 MG PO BID 07/01/12 Information Source: Patient, Spouse Mode of Arrival: Wheelchair Past Medical History PAST MEDICAL HISTORY: DM, HTN, Kidney Stones, TIA Surgical History: Appendectomy, Hysterectomy [employer]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 Family History Family History: Reviewed,noncontributory to illness Social History Smoker: Non-Smoker Alcohol: Denies ETOH Use Drugs: Denies Drug Use Lives In: Home Constitutional: denies: chills, diaphoresis, fatigue, fever, malaise, sweats, weakness, others EENTM: denies: blurred vision, double vision, ear bleeding, ear discharge, ear drainage, ear pain, ear ringing, eye pain, eye redness, hearing loss, mouth pain, mouth swelling, nasal discharge, nose bleeding, nose congestion, nose pain, photophobia, tearing, throat pain, throat swelling, voice changes, others Respiratory: denies: cough, hemoptysis, orthopnea, SOB at rest, shortness of breath, SOB with excertion, stridor, wheezing, others Cardiovascular: denies: chest pain, dizzy spells, diaphoresis, Dyspnea on exertion, edema, irregular heart beat, left arm pain, lightheadedness, palpitations, PND, syncope, others Gastrointestinal: denies: abdomen distended, abdominal pain, blood streaked bowels, constipated, diarrhea, dysphagia, difficulty swallowing, hematemesis, melena, nausea, poor appetite, poor fluid intake, rectal bleeding, rectal pain, vomiting, others Genitourinary: denies: abnormal vagina bleeding, burning, dyspareunia, dysuria, flank pain, frequency, hematuria, incontinence, pain, , vagina discharge, urgency, others Neurological: denies: dizziness, fainting, headache, left sided numbness, left sided weakness, numbness, paresthesia, pre-existing deficit, right sided numbness, right sided weakness, seizure, speech problems, tingling, tremors, weakness, others Musculoskeletal: reports: joint pain (LUE); denies: back pain, gout, joint swelling, muscle pain, muscle stiffness, neck pain, others Integumetry: denies: bruises, change in color, change in hair/nails, dryness, laceration, lesions, lumps, rash, wounds, others Allergic/Immunocompromised: denies: Difficulty Healing, Frequent Infections, Hives, Itching, others Hematologic/Lymphatic: denies: anemia, blood clots, easy bleeding, easy bruising, swollen glands, others Endocrine: denies: excessive hunger, excessive sweating, excessive thirst, excessive urination, flushing, intolerance to cold, intolerance to heat, unexplained weight gain, unexplained weight loss, others Psychiatric: denies: anxiety, bipolar disorder, depression, hopeless, panic disorder, schizophrenia, sleepless, suicidal, others All Other Systems: Reviewed and Negative Physical Exam General Appearance: No Apparent Distress, Normal HEENT: Normal ENT Inspection, Pharynx Normal, TMs Normal Neck: Full Range of Motion, Non-Tender, Normal, Normal Inspection Respiratory: Chest Non-Tender, Lungs Clear, No Accessory Muscle Use, No Respiratory Distress, Normal Breath Sounds Cardiovascular: No Edema, No JVD, No Murmur, No Gallop, Normal Peripheral Pulses, Regular Rate/Rhythm Breast Exam: Deferred Gastrointestinal: No Organomegaly, Non Tender, No Pulsatile Mass, Normal Bowel Sounds, Soft Genitalia: Deferred Pelvic: Deferred Rectal: Deferred Extremities: Decreased range of motion (LUE), Swelling (LUE), Tender (LUE) Musculoskeletal : Apperance: Normal Neurologic: Alert, evp sales II-XII nml as Tested, No Motor Deficits, Normal Affect, Normal Mood, No Sensory Deficits Cerebellar Function: Normal Reflexes: Normal Skin: Dry, Normal Color, Warm Lymphatic: No Adenopathy Was a procedure done? Was a procedure done?: No Differential Diagnosis EXT Differential Diagnosis: Fracture, Sprain, Dislocation, Contusion, Strain X-Ray, Labs, Meds, VS Vital Signs Date Time Temp Pulse Resp B/P (MAP) Pulse Ox O2 Delivery O2 Flow Rate FiO2 09/07/24 16:57 97.8 56 16 132/45 (74) 96 97.8 09/07/24 16:57 56 16 132/45 09/07/24 15:54 57 16 113/44 09/07/24 15:43 98.4 57 16 113/44 (67) 95 98.4 09/07/24 15:43 57 16 95 Room Air 6/29/25 14:49 97.9 63 17 155/72 (99) 98 97.9 Current Medications Medications (Trade) Dose Ordered Sig/Xavier Route Start Time Stop Time Status Last Admin Acetaminophen/ Hydrocodone Bitart ([place] 5/325MG Tab) 1 tab ONCE ONCE PO 09/07/24 15:00 09/07/24 15:01 DC 09/07/24 15:46 Sodium Chloride 1,000 ml @ 1,000 mls/hr Q1H ONCE IV 09/07/24 15:00 09/07/24 15:59 DC 09/07/24 15:46 Morphine Sulfate 4 mg ONCE ONCE IV 09/07/24 15:00 09/07/24 15:01 DC 09/07/24 15:54 Ondansetron HCl (Zofran) 4 mg ONCE ONCE IV 09/07/24 15:00 09/07/24 15:01 DC 09/07/24 15:54 [place] [address] Ph: [phone] DIAGNOSTIC IMAGING Diagnostic Imaging Report : [id number] Signed PATIENT: ALESSIO MORELAND ACCT: [id number] UNIT: [id number] : 1950 LOC: ER ROOM / BED: / AGE / SEX: 74 / F ADM STATUS: REG ER SERVICE 1448 ORDERING PHYSICIAN: LUPE STALLWORTH MD PROCEDURE(s): LSHD2 - L SHOULDER 2+ VIEW XRAY REASON: fall ORDER NUMBER(s): [id number], ACCESSION NUMBER(s): [id number] CLINICAL INDICATION: fall TECHNIQUE: 2 radiographic views of the left shoulder were obtained. Comparison: None FINDINGS/IMPRESSION: Impacted fracture through the neck of the left humerus and mildly displaced fracture through the greater tuberosity of the proximal left humerus. Clavicle appears intact acromioclavicular joint appears normal. The visualized joint space is well maintained. The alignment is anatomical. There is no radiopaque foreign body. ATED BY: GOOD KEVIN Jr., DO DICTATED DATE/TIME: 09/07/24 1533 SIGNED BY: GOOD KEVIN Jr., SIGNED DATE/TIME: 09/07/24 1533 CC: [address] [address] Ph: [phone] DIAGNOSTIC IMAGING Diagnostic Imaging Report : [id number] Signed PATIENT: ALESSIO MORELAND ACCT: [id number] UNIT: [id number] : 1950 LOC: ER ROOM / BED: / AGE / SEX: 74 / F ADM STATUS: REG ER SERVICE 1448 ORDERING PHYSICIAN: LUPE STALLWORTH MD PROCEDURE(s): LHUM - L HUMERUS XRAY REASON: fall ORDER NUMBER(s): [id number], ACCESSION NUMBER(s): [id number] CLINICAL INDICATION: fall TECHNIQUE: 2 radiographic views of the left humerus were obtained. Comparison: None FINDINGS/IMPRESSION: Impacted fracture neck of the left humerus as well as mildly displaced fracture through the greater tuberosity of the left humerus. The visualized joint space is well maintained. The alignment is anatomical. There is no radiopaque foreign body. ATED BY: GOOD KEVIN Jr., DO DICTATED DATE/TIME: 09/07/241531 SIGNED BY: GOOD KEVIN Jr., DO SIGNED DATE/TIME: 09/07/241531 CC: Time of 1ST Reevaluation: 17:36 Reevaluation 1ST: Unchanged Patient Education/Counseling: Diagnosis, Treatment Family Education/Counseling: Diagnosis, Treatment Departure 1 Departure Time of Disposition: 17:36 (Patient has has a left humerus fracture. We will discharge patient home with outpatient follow up) Impression: Primary Impression: Humerus fracture Qualified Codes: S42.322A - Displaced transverse fracture of shaft of humerus, left arm, initial encounter for closed fracture Disposition: 01 HOME / SELF CARE / HOMELESS Condition: Stable Referrals: FRANCIS GROSS MD Additional Instructions: You have a left humerus fracture. You were placed in a sling for comfort. Referred to orthopedics. Please call for an appointment For pain you can take the followinam: Ibuprofen 400mg with food Noon: Acetaminophen 1000mg 4pm: Ibuprofen 400mg with food 8pm: Acetaminophen 1000mg You were prescribed oxycodone for breakthrough pain. If your symptoms worsen or you have any other concerns then please return to the ER. Discharged With: Self Critical Care Note Critical Care Time?: No Stability Stability form required: No Heart Score Heart Score: Heart Score Response (Comments) Value History N/A 0 EKG N/A 0 Age N/A 0 Risk Factors N/A 0 Troponin N/A 0 Total 0 I personally scribed for LUPE STALLWORTH MD ([email or web address]) on 09/07/24 at 16:32. Electronically submitted by Cesar Sutherland ([email or web address]). LUPE STALLWORTH MD Sep 07, 2024 16:32
[2024-09-07 16:57] VITALS: BP 132/45; PULSE 56; RESP 16; TEMP 97.8; O2SAT 96
[2024-09-07] MEDS ORDERED: OXYC-900 PO (18:07)
== END 2024-09-07 17:58 | disposition home or self-care (01) ==
LOC: ER 14:39
DX: S42.292A Other displaced fracture of upper end of left humerus, initial encounter for closed fracture (principal); E11.9 Type 2 diabetes mellitus without complications; I10 Essential (primary) hypertension; Z79.84 Long term (current) use of oral hypoglycemic drugs; Z86.73 Personal history of transient ischemic attack (TIA), and cerebral infarction without residual deficits; Z90.49 Acquired absence of other specified parts of digestive tract; Z90.710 Acquired absence of both cervix and uterus; W01.0XXA Fall on same level from slipping, tripping and stumbling without subsequent striking against object, initial encounter; Y93.89 Activity, other specified; Y92.89 Other specified places as the place of occurrence of the external cause; Y99.8 Other external cause status
CPT/HCPCS: 73030; 73060; 96361; 96374; 96375; 99284; J2270; J2405; J7030